=== PATIENT | male | born 1950 | race Caucasian/White ===

== ENCOUNTER → 2017-02-23 | Outpatient (CLI) | payer OTHER ==
--- NOTE | ~2017-02-23 | 2DMMODE ---
[facility] [address] [place] [address] 2 D/M-MODE ECHOCARDIOGRAM Name: CATARINA ENGLE RANDALL Room #: REG [facility]#: [id number] Admission: 02/23/17 Attend Phys: Physician not on s Discharge: Date of : 50 Date of Service: 02/23/17 1121 Report #: [id number] THIS REPORT FOR: //name// APPROVED REPORT Study performed: 02/23/2017 08:55:58 EXAM: Comprehensive 2D, Doppler, and color-flow Echocardiogram Patient Location: Out-Patient Room #: Echo lab Status: routine Other Information Study Quality: Adequate Indications COPD Diabetes Hypertension/HDD 2D Dimensions LVEF(%): 55.03 (>50%) IVSd: 14.16 (7-11mm) LVOT Diam: 24.06 (18-24mm) LVDd: 46.37 mm PWd: 14.45 (7-11mm) LVDs: 33.14 (25-40mm) Aortic Root: 29.85 mm Reyna's LVEF: 55.03 % Volumes Left Atrial Volume (Systole) Single Plane 4CH: 37.60 mL Single Plane 2CH: 65.07 mL LA ESV Index: 23.00 mL/m2 Aortic Valve AoV Peak Aldo.: 1.38 m/s AO Peak Gr.: 7.67 mmHg LVOT Max P.10 mmHg LVOT Max V: 1.01 m/s CELIA Vmax: 3.33 cm2 Mitral Valve E/A Ratio: 0.8 MV Decel. Time: 242.27 ms MV E Max Aldo.: 0.67 m/s [facility] [address] [place] [address] 2 D/M-MODE ECHOCARDIOGRAM Name: CATARINA ENGLE RANDALL Room #: REG [facility]#: [id number] Admission: 02/23/17 Attend Phys: Physician not on s Discharge: Date of : 50 Date of Service: 02/23/17 1121 Report #: [id number] MV A Aldo.: 0.80 m/s MV PHT: 70.26 ms IVRT: 138.41 ms Pulmonary Valve PV Peak Aldo.: 0.89 m/s PV Peak Gr.: 3.14 mmHg Pulmonary Vein P Vein S: 0.56 m/s P Vein A: 0.23 m/s P Vein D: 0.38 m/s P Vein A Dur.: 110.7 msec P Vein S/D Ratio: 1.47 Tricuspid Valve TR Peak Adlo.: 2.49 m/s TR Peak Gr.: 24.77 mmHg PA Pressure: 25.00 mmHg Left Ventricle The left ventricle is normal size. Mild concentric left ventricular hypertrophy. The left ventricular systolic function is normal. The left ventricular ejection fraction is within the normal range. LVEF is 55-60%. Grade I - abnormal relaxation pattern. Right Ventricle The right ventricle is normal size. The right ventricular systolic function is normal. Atria The left atrium size is normal. Right atrium is at the upper limits of normal. Aortic Valve The aortic valve is normal in structure. Trace aortic regurgitation. There is no aortic valvular stenosis. Mitral Valve The mitral valve is normal in structure. Trace mitral regurgitation. No evidence of mitral valve stenosis. Tricuspid Valve The tricuspid valve is normal in structure. There is trace tricuspid regurgitation. There is no pulmonary hypertension. Pulmonic Valve The pulmonary valve is normal in structure. There is no pulmonic valvular regurgitation. [facility] [address] [address] 2 D/M-MODE ECHOCARDIOGRAM Name: CATARINA ENGLE RANDALL [facility] #: [id number] Admission: 02/23/17 Attend Phys: Physician not on s Discharge: Date of : 50 Date of Service: 02/23/17 1121 Report #: [id number] Great Vessels The aortic root is normal in size. IVC is not well visualized. Pericardium There is no pericardial effusion. <Conclusion> The left ventricle is normal size. Mild concentric left ventricular hypertrophy. The left ventricular systolic function is normal. Grade I - abnormal relaxation pattern. The right ventricle is normal size. The left atrium size is normal. The aortic valve is normal in structure. Trace mitral regurgitation. There is no pericardial effusion. <ELECTRONICALLY SIGNED> By: Pete Logan MD 02/23/17 1121 112 20 Pete Logan MD /INF
== END ==
LOC: RAD 09:31
DX: I51.7 Cardiomegaly (principal); J44.9 Chronic obstructive pulmonary disease, unspecified

== ENCOUNTER → 2021-06-24 | Outpatient (CLI) | payer OTHER | LOC: HYPER 09:24 | PROVIDERS: ATTEND Specialist | DX: E11.622 Type 2 diabetes mellitus with other skin ulcer (principal); I87.331 Chronic venous hypertension (idiopathic) with ulcer and inflammation of right lower extremity; I70.233 Atherosclerosis of native arteries of right leg with ulceration of ankle; L97.312 Non-pressure chronic ulcer of right ankle with fat layer exposed; E11.51 Type 2 diabetes mellitus with diabetic peripheral angiopathy without gangrene; E11.40 Type 2 diabetes mellitus with diabetic neuropathy, unspecified; L84 Corns and callosities; R60.1 Generalized edema; B36.9 Superficial mycosis, unspecified; M10.9 Gout, unspecified; K21.9 Gastro-esophageal reflux disease without esophagitis; E78.5 Hyperlipidemia, unspecified; I11.0 Hypertensive heart disease with heart failure; I50.9 Heart failure, unspecified; J44.9 Chronic obstructive pulmonary disease, unspecified; Z87.891 Personal history of nicotine dependence; Z79.4 Long term (current) use of insulin; Z79.899 Other long term (current) drug therapy ==

== ENCOUNTER → 2021-06-24 | Outpatient (CLI) | payer OTHER | LOC: SJCVCIMAG 08:32 | PROVIDERS: ATTEND Nuclear Medicine Nuclear Cardiology | DX: L97.818 Non-pressure chronic ulcer of other part of right lower leg with other specified severity (principal); L97.828 Non-pressure chronic ulcer of other part of left lower leg with other specified severity; I73.9 Peripheral vascular disease, unspecified; M79.606 Pain in leg, unspecified ==

== ENCOUNTER → 2021-07-01 | Outpatient (CLI) | payer OTHER | LOC: HYPER 09:45 | PROVIDERS: ATTEND Specialist | DX: E11.622 Type 2 diabetes mellitus with other skin ulcer (principal); I87.331 Chronic venous hypertension (idiopathic) with ulcer and inflammation of right lower extremity; I70.233 Atherosclerosis of native arteries of right leg with ulceration of ankle; L97.312 Non-pressure chronic ulcer of right ankle with fat layer exposed; E11.51 Type 2 diabetes mellitus with diabetic peripheral angiopathy without gangrene; E11.40 Type 2 diabetes mellitus with diabetic neuropathy, unspecified; L84 Corns and callosities; R60.1 Generalized edema; B36.9 Superficial mycosis, unspecified; M10.9 Gout, unspecified; K21.9 Gastro-esophageal reflux disease without esophagitis; E78.5 Hyperlipidemia, unspecified; I11.0 Hypertensive heart disease with heart failure; I50.9 Heart failure, unspecified; J44.9 Chronic obstructive pulmonary disease, unspecified; Z87.891 Personal history of nicotine dependence; Z79.4 Long term (current) use of insulin ==

== ENCOUNTER → 2021-07-14 | Outpatient (CLI) | payer OTHER | LOC: HYPER 09:18 | PROVIDERS: ATTEND Emergency Medicine Emergency Medical Services | DX: E11.622 Type 2 diabetes mellitus with other skin ulcer (principal); I87.331 Chronic venous hypertension (idiopathic) with ulcer and inflammation of right lower extremity; I70.233 Atherosclerosis of native arteries of right leg with ulceration of ankle; L97.312 Non-pressure chronic ulcer of right ankle with fat layer exposed; E11.51 Type 2 diabetes mellitus with diabetic peripheral angiopathy without gangrene; E11.40 Type 2 diabetes mellitus with diabetic neuropathy, unspecified; L84 Corns and callosities; R60.1 Generalized edema; B36.9 Superficial mycosis, unspecified; M10.9 Gout, unspecified; K21.9 Gastro-esophageal reflux disease without esophagitis; E78.5 Hyperlipidemia, unspecified; I11.0 Hypertensive heart disease with heart failure; I50.9 Heart failure, unspecified; J44.9 Chronic obstructive pulmonary disease, unspecified; Z87.891 Personal history of nicotine dependence; Z79.4 Long term (current) use of insulin ==

== ENCOUNTER → 2021-07-22 | Outpatient (CLI) | payer OTHER | LOC: HYPER 09:03 | PROVIDERS: ATTEND Specialist | DX: E11.622 Type 2 diabetes mellitus with other skin ulcer (principal); I87.331 Chronic venous hypertension (idiopathic) with ulcer and inflammation of right lower extremity; I70.233 Atherosclerosis of native arteries of right leg with ulceration of ankle; L97.312 Non-pressure chronic ulcer of right ankle with fat layer exposed; R60.1 Generalized edema; B36.9 Superficial mycosis, unspecified; M10.9 Gout, unspecified; K21.9 Gastro-esophageal reflux disease without esophagitis; E78.5 Hyperlipidemia, unspecified; I11.0 Hypertensive heart disease with heart failure; I50.9 Heart failure, unspecified; J44.9 Chronic obstructive pulmonary disease, unspecified; L84 Corns and callosities; E66.9 Obesity, unspecified; Z68.37 Body mass index [BMI] 37.0-37.9, adult; Z79.4 Long term (current) use of insulin; Z87.891 Personal history of nicotine dependence; Z79.899 Other long term (current) drug therapy ==

== ENCOUNTER → 2021-08-05 | Outpatient (CLI) | payer OTHER | LOC: HYPER 09:40 | PROVIDERS: ATTEND Specialist | DX: I87.331 Chronic venous hypertension (idiopathic) with ulcer and inflammation of right lower extremity (principal); E11.622 Type 2 diabetes mellitus with other skin ulcer; I70.233 Atherosclerosis of native arteries of right leg with ulceration of ankle; L97.312 Non-pressure chronic ulcer of right ankle with fat layer exposed; E11.40 Type 2 diabetes mellitus with diabetic neuropathy, unspecified; L84 Corns and callosities; I11.0 Hypertensive heart disease with heart failure; R60.1 Generalized edema; I50.9 Heart failure, unspecified; B36.9 Superficial mycosis, unspecified; J44.9 Chronic obstructive pulmonary disease, unspecified; M10.9 Gout, unspecified; K21.9 Gastro-esophageal reflux disease without esophagitis; E78.5 Hyperlipidemia, unspecified; E66.9 Obesity, unspecified; Z68.37 Body mass index [BMI] 37.0-37.9, adult; Z87.891 Personal history of nicotine dependence; Z79.4 Long term (current) use of insulin; Z79.899 Other long term (current) drug therapy ==